=== PATIENT | female | born 1975 | race Caucasian/White ===

== ENCOUNTER 2017-08-24 22:09 | Emergency (ER) | payer OTHER ==
--- NOTE | 2017-08-24 22:20 | Emergency Department Record ---
History of Present Illness - General Chief Complaint: Alcohol Intoxication Stated Complaint: ALCOHOL INTOXICATION Time Seen by Provider: 08/24/17 22:13 Source: Patient, EMS Mode of Arrival: Stretcher Limitations: No limitations - History of Present Illness Initial Comments: 42 yo female presents by EMS due to intoxication. The patient was at a bar in [facility]. She began drinking around 8pm. She admits she drank more than usual. She states she is a social drinker about once a month. She states she began to feel nauseated and thought she was going to vomit. She states she was embarrassed to vomit in the bar so she went outside. She laid down on the ground due to feeling nauseated and woozy. She did not fall or hurt herself. She was seen by a by passer and EMS was called. She recalls all events. She denies injury or pain. She remains nauseated. She denies any recent health issues. She denies depression or thoughts of killing herself. She works as a [employer] worker. She was off today for . PCP is in [place]. Complaint: Alcohol intoxication -: Minute(s) Chronic Alcohol Use: No Previous Visits for Alcohol Intoxication?: No Recent Trauma: No Associated Symptoms: Nausea - Marcos Coma Scale Eye Response: (4) Open spontaneously Motor Response: (6) Obeys commands Verbal Response: (5) Oriented [place] Total: 15 - Related Data Home Medications Medication Instructions Recorded Confirmed Last Taken Venlafaxine HCl [Effexor] 75 mg PO DAILY 08/24/17 08/24/17 Unknown Previous Rx's Medication Instructions Recorded Ondansetron [Zofran Odt] 4 mg PO Q8H #10 tab.rapdis 08/24/17 Allergies Allergy/AdvReac Type Severity Reaction Status Date / Time codeine Allergy VOMITING Verified 08/24/17 22:17 Review of Systems Constitutional: Denies: Chills, Fever, Malaise, Weakness Eyes: Denies: Eye discharge, Eye pain, Photophobia, Vision change ENT: Denies: Congestion, Throat pain Respiratory: Denies: Cough, Dyspnea, Hemoptysis, Stridor, Wheezes Cardiovascular: Denies: Chest pain, Palpitations, Syncope Endocrine: Denies: Fatigue Gastrointestinal: Reports: Nausea, Vomiting. Denies: Abdominal pain, Diarrhea, Melena Genitourinary: Denies: Dysuria, Hematuria, Urgency Musculoskeletal: Denies: Arthralgia, Back pain, Joint swelling, Myalgia Skin: Denies: Bruising, Change in color, Rash Neurological: Denies: Confusion, Headache, Numbness, Tingling, Tremors, Vertigo , Weakness Psychiatric: Denies: Anxiety, Depression, Suicidal thoughts Hematological/Lymphatic: Denies: Anemia, Easy bleeding, Easy bruising, Swollen glands Physical Exam - General General Appearance: Alert, Oriented x3, Cooperative, No acute distress Limitations: No limitations - Head Head exam: Atraumatic, Normocephalic, Normal inspection - Eye Eye exam: Normal appearance, PERRL. negative: Conjunctival injection, Periorbital swelling, Periorbital tenderness, Scleral icterus - ENT ENT exam: Normal exam, Mucous membranes moist Ear exam: Normal external inspection Nasal Exam: Normal inspection Mouth exam: Normal external inspection Teeth exam: Normal inspection - Neck Neck exam: Normal inspection, Full ROM. negative: Tenderness - Respiratory Respiratory exam: Normal lung sounds bilaterally. negative: Respiratory distress - Cardiovascular Cardiovascular Exam: Regular rate, Normal rhythm, Normal heart sounds Peripheral Pulses: 2+: Radial (R), Radial (L) - GI/Abdominal GI/Abdominal exam: Soft. negative: Tenderness - Rectal Rectal exam: Deferred - exam: Deferred - Extremities Extremities exam: Normal inspection, Full ROM, Normal capillary refill. negative: Tenderness - Back Back exam: Reports: Normal inspection, Full ROM. Denies: CVA tenderness (R), CVA tenderness (L), Muscle spasm, Rash noted, Tenderness - Neurological Neurological exam: Alert, Normal gait, Oriented X3 - Skin Skin exam: Dry, Intact, Normal color, Warm Course - Reevaluation(s) Reevaluation #1: The labs were reviewed No acute changes on the CBC No acute changes on the CMP HCG is negative Alcohol is 0.177 The patient remains fully oriented. No complaints. The nausea is improving. 08/24/17 22:54 08/24/17 23:23 The patient is up on her feet to the bathroom She is very stable on her feet No nausea or pain She is stable for DC with reliable family that are present in the ED Medical Decision Making - Lab Data Result diagrams: 08/24/17 22:20 08/24/17 22:20 Disposition Disposition: Discharge Clinical Impression: Intoxication Disposition: Home, Self-Care Condition: (1) Good Instructions: Alcohol Intoxication (ED) Additional Instructions: Rest and stay well hydrated Return if you have any ongoing symptoms or concerns Prescriptions: Ondansetron [Zofran Odt] 4 mg PO Q8H #10 tab.rapdis Forms: Patient Portal Access Time of Disposition: 23:24 Quality - Quality Measures Quality Measures: N/A - Blood Pressure Screening Does Patient Have Any of the Following: No Blood Pressure Classification: Normal BP Reading Systolic Measurement: 111 Diastolic Measurement: 79 Screening for High Blood Pressure: < Normal BP, F/U Not Required > [G8783]
[2017-08-24] MEDS: ONDANSETRON HCL IV 4 MG/2 ML VIAL IVP ONE ×2 (22:24→23:03)
[2017-08-24 22:30] LABS: BASO % 0.5 % (0-6); EOS % 5.6 % (0-6); GRAN % 50.2 % (47-80); HEMATOCRIT 40.1 % (35.0-47.0); HEMOGLOBIN 13.4 gm/dl (11.6-16.0); LYMPH % 38.5 % (16-45); MEAN CELL VOLUME 89.5 fl (81-97); MEAN CORPUSCULAR HEMOGLOBIN 29.9 pg (27-33); MEAN CORPUSCULAR HGB CONC 33.4 g/dl (32-36); MEAN PLATELET VOLUME 9.2 fl (7.4-10.4); MONO % 5.2 % (0-9); PLATELET COUNT 348 K/uL (130-400); RED BLOOD COUNT 4.48 M/uL (3.80-5.40); RED CELL DISTRIBUTION WIDTH 12.4 % (11.5-14.5); WHITE BLOOD COUNT W/O DIFF 7.6 K/uL (4.2-12.2)
[2017-08-24 22:46] LABS: ALB/GLOB RATIO 1.3 (1.1-1.8); ALBUMIN 4.4 g/dL (4.0-5.0); ALKALINE PHOSPHATASE 72 U/L (35-104); ALT/SGPT 18 U/L (<33); AST/SGOT 17 U/L (10.0-35.0); BLOOD UREA NITROGEN 11 mg/dL (6-20); CREATININE 0.8 mg/dL (0.5-0.9); EST GLOMERULAR FILTRATION RATE > 60 mL/min; GLUCOSE,RANDOM 143 mg/dL (74-109); TOTAL PROTEIN 7.7 g/dL (6.6-8.7)
[2017-08-24 22:50] LABS: ALCOHOL 0.177 g/dL (0-0.010)
[2017-08-24] MEDS ORDERED: ONDANSETRON 4 MG ODT TABLET SL ONE (22:58)
[2017-08-24] MEDS ORDERED: ONDANSETRON HCL IV 4 MG/2 ML VIAL IVP ONE (23:06)
== END 2017-08-24 23:38 | disposition home or self-care (01) ==
LOC: ER 22:09
DX: F10.129 Alcohol abuse with intoxication, unspecified (principal); Y90.6 Blood alcohol level of 120-199 mg/100 ml; R11.2 Nausea with vomiting, unspecified
CPT/HCPCS: 99284 ×2; 96374; 83735; 85025; 80053; 84703; G0480; J2405; 80320

== ENCOUNTER 2018-10-27 12:37 | Emergency (ER) | payer SELFPAY ==
[2018-10-27] MEDS ORDERED: IBUPROFEN 600 MG TABLET PO ONE (12:54)
--- NOTE | 2018-10-27 12:57 | Emergency Department Record ---
History of Present Illness - General Chief complaint: Lower Extremity Pain Stated complaint: LT ANKLE PAIN Time Seen by Provider: 10/27/18 12:52 Source: Patient Mode of Arrival: Ambulatory Limitations: No limitations - History of Present Illness Initial comments: The patient rolled her L ankle at work 2 hours ago and it has been very painful since. She has been unable to walk on it since. The patient denies any other injuries. MD Complaint: Extremity pain Onset/Timin -: Hour(s) Location: Left History of Same: No Radiation: None Severity scale (1-10): 8 Quality: Aching, Dull, Sharp, Stabbing Consistency: Constant Improves with: Elevation Worsens with: Walking, Weight bearing Associated Symptoms: Denies other symptoms - Related Data Home Medications Medication Instructions Recorded Confirmed Last Taken Ondansetron [Zofran Odt] 4 mg PO Q8H PRN 10/27/18 10/27/18 Unknown Pravastatin Sodium [Pravachol] 20 mg PO DAILY 10/27/18 10/27/18 10/26/18 20:00 Allergies Allergy/AdvReac Type Severity Reaction Status Date / Time codeine AdvReac Mild VOMITING Verified 10/27/18 12:50 Travel Screening - Travel/Exposure Within Last 30 Days Have you traveled within the last 30 days?: No - Travel/Exposure Within Last Year Have you traveled outside the [place] in the last year?: No - Additonal Travel Details Have you been exposed to anyone with a communicable illness?: No - Travel Symptoms Symptom Screening: None Review of Systems Constitutional: Denies: Chills, Fever Past Medical History - SOCIAL HISTORY Smoking Status: Never smoker Alcohol Use: Rare Drug Use: None - RESPIRATORY Hx Respiratory Disorders: No - CARDIOVASCULAR Hx Cardio Disorders: No - NEURO Hx Neuro Disorders: No - GI Hx GI Disorders: No - Hx Genitourinary Disorders: No - ENDOCRINE Hx Endocrine Disorders: No - MUSCULOSKELETAL Hx Musculoskeletal Disorders: No - PSYCH Hx Psych Problems: No - HEMATOLOGY/ONCOLOGY Hx Hematology/Oncology Disorders: No Family Medical History Any Significant Family History?: No Physical Exam - General General Appearance: Alert, Oriented x3, Cooperative, No acute distress - Head Head exam: Atraumatic, Normocephalic, Normal inspection - Eye Eye exam: Normal appearance - Extremities Extremities exam: Normal capillary refill, Tenderness, Other (The L foot is NVI. ). negative: Normal inspection (There is mod distal L lateral malleolus tenderness with edema.), Full ROM (There is no ligamentous laxity.), Joint swelling Image of Full Body: 1 - Area of pain and swelling. - Neurological Neurological exam: Alert. negative: Motor sensory deficit Course Vital Signs 10/27/18 12:39 Temperature 98.3 F Pulse Rate 98 H Respiratory 20 Rate Blood Pressure 127/84 Pulse Ox 98 - Reevaluation(s) Reevaluation #1: I did discuss the neg xrays with the patient and the need for icing and elevating the L ankle and recheck in 3 days with her Occupational Health provider. 10/27/18 13:24 Medical Decision Making - Data Complexity MDM Data: X-Ray Ordered and/or Reviewed - Radiology Data Radiology results: Report reviewed (L ankle: Neg for fx or acute injury.) Disposition Disposition: Discharge Clinical Impression: Left ankle sprain Qualifiers: Encounter type: initial encounter Involved ligament of ankle: unspecified ligament Qualified Code(s): S93.402A - Sprain of unspecified ligament of left ankle, initial encounter Disposition: Home, Self-Care Condition: (2) Stable Instructions: Ankle Sprain (ED) Additional Instructions: Please ice and elevate the L ankle today and take the rest of the day off. Use Motrin or Tylenol for pain and wear the splint and use crutches for 3 days. Please have the ankle rechecked with your Occupational Health Provider in 3 days. Forms: Patient Portal Access Time of Disposition: 13:27 Quality - Quality Measures Quality Measures: N/A - Blood Pressure Screening View Details: Yes Does Patient Have Any of the Following: No Blood Pressure Classification: Normal BP Reading Systolic Measurement: 108 Diastolic Measurement: 70 Screening for High Blood Pressure: < Normal BP, F/U Not Required > [G8783]
--- NOTE | 2018-10-28 07:07 | RADIOLOGY REPORT ---
EXAM: LEFT ANKLE HISTORY: ROLLED ANKLE, LATERAL AND POSTERIOR ANKLE PAIN. TECHNIQUE: Three views of the left ankle were obtained. Comparison: None. FINDINGS: Lateral ankle soft tissue swelling. Possible tibiotalar joint effusion. No acute fracture identified. Ankle mortise alignment is maintained. The talar dome is intact. Suggestion of an os trigonum. Small calcaneal Achilles insertion enthesophyte. IMPRESSION: 1. LATERAL ANKLE SOFT TISSUE SWELLING. 2. NO DEFINITE ACUTE OSSEOUS FINDINGS. JOB NUMBER: [id number] [facility]
== END 2018-10-27 13:36 | disposition home or self-care (01) ==
LOC: ER 12:37
DX: S93.402A Sprain of unspecified ligament of left ankle, initial encounter (principal); X50.0XXA Overexertion from strenuous movement or load, initial encounter; Y99.0 Civilian activity done for income or pay
CPT/HCPCS: 99283

== ENCOUNTER 2018-10-30 11:28 | Emergency (ER) | payer SELFPAY ==
--- NOTE | 2018-10-30 12:05 | Emergency Department Record ---
History of Present Illness - General Chief complaint: Lower Extremity Pain Stated complaint: RECHECK ANKLE SPRAIN 10/27 Time Seen by Provider: 10/30/18 11:44 Source: Patient Mode of Arrival: Ambulatory Limitations: No limitations - History of Present Illness Initial comments: pt sprained her ankle 3 days ago and is back for a recheck as she had been instructed to do. she was told to follow up with occupational health and then her boss told her to come here for her recheck. she states that normally they follow up with [facility] in [place]. she is still unable to bear weight. she has swelling and ecchymosis MD Complaint: Extremity pain, Extremity swelling, Joint pain, Joint swelling Onset/Timin -: Days(s) Location: Left, Ankle History of Same: No Radiation: Distal Severity scale (1-10): 8 Quality: Aching Consistency: Intermittent Improves with: Rest Worsens with: Exertion, Walking - Related Data Allergies Allergy/AdvReac Type Severity Reaction Status Date / Time codeine AdvReac Mild VOMITING Verified 10/27/18 12:50 Travel Screening - Travel/Exposure Within Last 30 Days Have you traveled within the last 30 days?: No - Travel/Exposure Within Last Year Have you traveled outside the [place] in the last year?: No - Additonal Travel Details Have you been exposed to anyone with a communicable illness?: No - Travel Symptoms Symptom Screening: None Review of Systems Reviewed: No additional complaints except as noted below Constitutional: Reports: As per HPI. Denies: Chills, Fever, Malaise, Night sweats, Weakness, Weight change Eyes: Reports: As per HPI. Denies: Eye discharge, Eye pain, Photophobia, Vision change ENT: Reports: As per HPI. Denies: Congestion, Dental pain, Ear pain, Epistaxis , Hearing loss, Throat pain Respiratory: Reports: As per HPI. Denies: Cough, Dyspnea, Hemoptysis, Stridor, Wheezes Cardiovascular: Reports: As per HPI. Denies: Arrhythmia, Chest pain, Dyspnea on exertion, Edema, Murmurs, Orthopnea, Palpitations, Paroxysmal nocturnal dyspnea, Rheumatic Fever, Syncope Endocrine: Reports: As per HPI. Denies: Fatigue, Heat or cold intolerance, Polydipsia, Polyuria Gastrointestinal: Reports: As per HPI. Denies: Abdominal pain, Constipation, Diarrhea, Hematemesis, Hematochezia, Melena, Nausea, Vomiting Genitourinary: Reports: As per HPI. Denies: Abnormal menses, Discharge, Dyspareunia, Dysuria, Frequency, Hematuria, Incontinence, Retention, Urgency Musculoskeletal: Reports: As per HPI. Denies: Arthralgia, Back pain, Gout, Joint swelling, Myalgia, Neck pain Skin: Reports: As per HPI. Denies: Bruising, Change in color, Change in hair/ nails, Lesions, Pruritus, Rash Neurological: Reports: As per HPI. Denies: Abnormal gait, Confusion, Headache, Numbness, Paresthesias, Seizure, Tingling, Tremors, Vertigo, Weakness Psychiatric: Reports: As per HPI. Denies: Anxiety, Auditory hallucinations, Depression, Homicidal thoughts, Suicidal thoughts, Visual hallucinations Hematological/Lymphatic: Reports: As per HPI. Denies: Anemia, Blood Clots, Easy bleeding, Easy bruising, Swollen glands Past Medical History - SOCIAL HISTORY Smoking Status: Never smoker Alcohol Use: None Drug Use: None - RESPIRATORY Hx Respiratory Disorders: No - CARDIOVASCULAR Hx Cardio Disorders: No - NEURO Hx Neuro Disorders: No - GI Hx GI Disorders: No - Hx Genitourinary Disorders: No Comment:: hysterectomy - ENDOCRINE Hx Endocrine Disorders: No - MUSCULOSKELETAL Hx Musculoskeletal Disorders: No - PSYCH Hx Psych Problems: Yes Hx Anxiety: Yes - HEMATOLOGY/ONCOLOGY Hx Hematology/Oncology Disorders: No Family Medical History Any Significant Family History?: Yes Hx Dementia: Grandparents Hx Diabetes: Father Physical Exam - General General Appearance: Alert, Oriented x3, Cooperative, No acute distress - Head Head exam: Normal inspection - Eye Eye exam: Normal appearance, PERRL, EOMI Pupils: Normal accommodation - ENT ENT exam: Normal exam, Mucous membranes moist, Normal external ear exam, Normal orophraynx Ear exam: Normal external inspection. negative: External canal tenderness Nasal Exam: Normal inspection. negative: Discharge, Sinus tenderness Mouth exam: Normal external inspection, Tongue normal Teeth exam: Normal inspection. negative: Dental caries Throat exam: Normal inspection. negative: Tonsillar erythema, Tonsillar exudate - Neck Neck exam: Normal inspection, Full ROM. negative: Tenderness - Respiratory Respiratory exam: Normal lung sounds bilaterally. negative: Respiratory distress - Cardiovascular Cardiovascular Exam: Regular rate, Normal rhythm, Normal heart sounds - GI/Abdominal GI/Abdominal exam: Soft, Normal bowel sounds. negative: Tenderness - Rectal Rectal exam: Deferred - exam: Deferred - Extremities Extremities exam: Normal inspection, Full ROM, Normal capillary refill, Tenderness Image of Feet: 1 - swelling and ecchymosis w tenderness - Back Back exam: Reports: Normal inspection, Full ROM. Denies: Muscle spasm, Rash noted, Tenderness - Neurological Neurological exam: Alert, CN II-XII intact, Normal gait, Oriented X3 - Psychiatric Psychiatric exam: Normal affect, Normal mood - Skin Skin exam: Dry, Intact, Normal color, Warm Course Vital Signs 10/30/18 11:34 Temperature 97.9 F Pulse Rate 90 Respiratory 20 Rate Blood Pressure 126/83 Pulse Ox 98 Disposition Disposition: Discharge Clinical Impression: Sprained ankle Qualifiers: Encounter type: subsequent encounter Involved ligament of ankle: unspecified ligament Laterality: left Qualified Code(s): S93.402D - Sprain of unspecified ligament of left ankle, subsequent encounter Disposition: Home, Self-Care Condition: (1) Good Instructions: Ankle Sprain (ED) Additional Instructions: ice and elevate foot. follow up with [facility]. no wt bearing for 3 days then wt bearing as tolerated and cleared by occupational health. jenae for pain Forms: Patient Portal Access, Return to Work/School Quality - Quality Measures Quality Measures: N/A - Blood Pressure Screening Does Patient Have Any of the Following: No Blood Pressure Classification: Pre-Hypertensive BP Reading Systolic Measurement: 126 Diastolic Measurement: 83 Screening for High Blood Pressure: < Pre-Hypertensive BP, F/U Documented > [ G8950] Pre-Hypertensive Follow-up Interventions: Follow-up with rescreen every year.
== END 2018-10-30 12:24 | disposition home or self-care (01) ==
LOC: ER 11:28
DX: S93.402D Sprain of unspecified ligament of left ankle, subsequent encounter (principal); X50.0XXA Overexertion from strenuous movement or load, initial encounter; Y99.0 Civilian activity done for income or pay
CPT/HCPCS: 99281